=== PATIENT | male | born 1950 | race Caucasian/White ===

== ENCOUNTER 2017-06-27 21:48 | Emergency (ER) | payer MEDICARE ==
[~2017-06-27] VITALS: Ht 185.4 cm; Wt 97.0 kg
[2017-06-27] MEDS ORDERED: diphenhydrAMINE 25mg capsule PO ONE (23:10)
[2017-06-27] MEDS ORDERED: LORazepam 1 MG tablet PO ONE (23:10)
[2017-06-27 23:28] VITALS: BP 138/83
== END 2017-06-27 23:29 | disposition home or self-care (01) ==
LOC: ER 21:48
DX: G47.00 Insomnia, unspecified (principal); E78.00 Pure hypercholesterolemia, unspecified; I10 Essential (primary) hypertension; K21.9 Gastro-esophageal reflux disease without esophagitis; Z98.890 Other specified postprocedural states
CPT/HCPCS: 99283; Q0163

== ENCOUNTER 2017-06-30 07:39 | Emergency (ER) | payer MEDICARE ==
[~2017-06-30] VITALS: Ht 185.4 cm; Wt 97.0 kg
[2017-06-30 08:43] LABS: BASOPHILS # (AUTO) 0.1 X10'3 (0-0.2); BASOPHILS % (AUTO) 0.9 % (0-1); EOSINOPHILS # (AUTO) 0.2 X10'3 (0-0.9); EOSINOPHILS % (AUTO) 2.6 % (0-6); HEMATOCRIT 40.3 % (42.0-52.0); HEMOGLOBIN 13.9 g/dl (14.0-17.9); LYMPHOCYTES # (AUTO) 1.5 X10'3 (1.1-4.8); LYMPHOCYTES % (AUTO) 19.6 % (21-51); MEAN CORPUSCULAR HEMOGLOBIN 30.4 PG (27.0-31.0); MEAN CORPUSCULAR HGB CONC 34.4 % (33.0-36.5); MEAN CORPUSCULAR VOLUME 88.4 FL (78-98); MEAN PLATELET VOLUME 7.4 FL (7.4-10.4); MONOCYTES # (AUTO) 0.5 X10'3 (0-0.9); NEUTROPHILS # (AUTO) 5.5 X10'3 (1.8-7.7); NEUTROPHILS % (AUTO) 69.9 % (42-75); PLATELET COUNT 202 X10'3 (140-440); RED BLOOD COUNT 4.56 X10'6 (4.70-6.10); RED CELL DISTRIBUTION WIDTH 14.2 % (11.5-14.5); WHITE BLOOD COUNT 7.9 X10'3 (4.5-11.0)
[2017-06-30 09:06] LABS: CLARITY,URINE CLEAR (Clear); COLOR,URINE YELLOW (Yellow); GLUCOSE, URINE NEGATIVE (Neg); KETONES,URINE NEGATIVE (Neg); LEUKOCYTE ESTERASE ,URINE NEGATIVE (Neg); NITRITES, URINE NEGATIVE (Neg); OCCULT BLOOD,URINE NEGATIVE (Neg); PH,URINE 6.5 (4.8-8.0); PROTEIN,URINE NEGATIVE (Neg); UROBILINOGEN,URINE 0.2 E.U/dL (0.2-1.0)
[2017-06-30 09:08] LABS: ALANINE AMINOTRANSFERASE 20 U/L (12-78); ALBUMIN/GLOBULIN RATIO 1.2 (1.1-1.5); ALKALINE PHOSPHATASE 104 IU/L (46-116); ANION GAP 9 (8-16); ASPARTATE AMINO TRANSFERASE 15 U/L (10-37); BILIRUBIN,TOTAL 0.8 MG/DL (0.1-1.0); BLOOD UREA NITROGEN 16 MG/DL (7-18); CALCIUM 9.1 MG/DL (8.5-10.1); CHLORIDE 102 MMOL/L (99-107); CREATININE 1.23 MG/DL (0.60-1.10); ETHANOL < 0.010 GM/DL (0.0-0.010); GLUCOSE 154 MG/DL (70-104); POTASSIUM 3.9 MMOL/L (3.5-5.1); SODIUM 139 MMOL/L (135-145); TOTAL CARBON DIOXIDE 28.3 MMOL/L (24-32); TOTAL PROTEIN 7.3 G/DL (6.4-8.2); eGFR 59 ML/MIN
[2017-06-30 09:11] LABS: UA COLLECTION TYPE CLN CATCH MIDSTREAM
[2017-06-30 09:19] LABS: URINE AMPHETAMINE SCREEN NEGATIVE (Neg); URINE BARBITUATE SCREEN NEGATIVE (Neg); URINE BENZODIAZEPINES SCREEN NEGATIVE (Neg); URINE CANNABINOID SCREEN POSITIVE (Neg); URINE COCAINE SCREEN NEGATIVE (Neg); URINE METHADONE SCREEN NEGATIVE (Neg); URINE OPIATE SCREEN NEGATIVE (Neg); URINE PHENCYCLIDINE SCREEN NEGATIVE (Neg)
[2017-06-30] MEDS ORDERED: CLON0.2T PO (09:25)
[2017-06-30] MEDS ORDERED: CLON1TAB4 PO (09:25)
[2017-06-30] MEDS ORDERED: LITH600C PO (09:25)
[2017-06-30] MEDS ORDERED: ZIPR40CA14 PO (09:25)
[2017-06-30] MEDS ORDERED: DONE10TA44 PO (09:25)
[2017-06-30] MEDS ORDERED: ATOR40TA72 PO (09:25)
[2017-06-30] MEDS ORDERED: OLAN20TA3 PO (10:37)
[2017-06-30] MEDS ORDERED: ZOLP5TAB8 PO (10:37)
[2017-06-30] MEDS ORDERED: OXYC-145 PO (10:37)
[2017-06-30] MEDS ORDERED: ZIPR80CA10 PO (10:42)
[2017-06-30] MEDS ORDERED: oxyCODONE/APAP 5-325mg tablet PO PRN (11:25)
[2017-06-30] MEDS ORDERED: LORazepam 1 MG tablet PO ONE (12:20)
[2017-06-30] MEDS ORDERED: ZIPRASIDONE HCL 80 MG PO SCH (13:00)
[2017-06-30] MEDS ORDERED: cloNIDine 0.1 mg tablet PO SCH (13:00)
[2017-06-30] MEDS ORDERED: clonazePAM 1mg tablet PO SCH (13:00)
[2017-06-30 17:19] VITALS: BP 131/78
[2017-06-30] MEDS ORDERED: ziprasidone 20mg capsule PO SCH (20:00)
[2017-06-30] MEDS ORDERED: lithium carbonate 150mg capsule PO SCH (20:00)
[2017-06-30] MEDS ORDERED: olanzapine 10mg tablet PO SCH (21:00)
[2017-06-30] MEDS ORDERED: zolpidem 5mg tablet PO SCH (21:00)
[2017-07-01] MEDS ORDERED: atorvastatin 20mg tablet PO SCH (08:00)
[2017-07-01] MEDS ORDERED: donepezil 5mg tablet PO SCH (08:00)
== END 2017-06-30 17:18 | disposition home or self-care (01) ==
LOC: ER 07:39
DX: F41.9 Anxiety disorder, unspecified (principal); R45.851 Suicidal ideations; E78.00 Pure hypercholesterolemia, unspecified; I10 Essential (primary) hypertension; K21.9 Gastro-esophageal reflux disease without esophagitis; F32.9 Major depressive disorder, single episode, unspecified; Z98.890 Other specified postprocedural states; Z79.899 Other long term (current) drug therapy
CPT/HCPCS: 36415; 80053; 80178; 80305; 80320; 81003; 84443; 85025; 99284

== ENCOUNTER 2017-06-30 21:36 | Emergency (ER) | payer MEDICARE ==
[~2017-06-30] VITALS: Ht 185.4 cm; Wt 82.3 kg
[~2017-06-30 21:36] MED LIST: ATOR40TA72 PO; CLON0.2T PO; CLON1TAB4 PO; DONE10TA44 PO; LITH600C PO; OLAN20TA3 PO; OXYC-145 PO; ZIPR40CA14 PO; ZIPR80CA10 PO; ZOLP5TAB8 PO
[2017-06-30 21:44] VITALS: BP 129/82
[2017-06-30] MEDS ORDERED: LORazepam 1 MG tablet PO ONE (22:40)
== END 2017-06-30 23:02 | disposition home or self-care (01) ==
LOC: ER 21:36
DX: F41.9 Anxiety disorder, unspecified (principal); F32.9 Major depressive disorder, single episode, unspecified; E78.00 Pure hypercholesterolemia, unspecified; I10 Essential (primary) hypertension; K21.9 Gastro-esophageal reflux disease without esophagitis; Z98.890 Other specified postprocedural states; Z79.899 Other long term (current) drug therapy
CPT/HCPCS: 99284

== ENCOUNTER 2017-07-01 14:57 | Emergency (ER) | payer MEDICARE ==
[~2017-07-01] VITALS: Ht 185.4 cm; Wt 93.1 kg
[~2017-07-01 14:57] MED LIST changes: -ZIPR40CA14 PO
[2017-07-01 16:06] LABS: BASOPHILS % (AUTO) 0.1 % (0-1); EOSINOPHILS # (AUTO) 0.2 X10'3 (0-0.9); EOSINOPHILS % (AUTO) 1.9 % (0-6); HEMATOCRIT 39.3 % (42.0-52.0); HEMOGLOBIN 13.5 g/dl (14.0-17.9); LYMPHOCYTES # (AUTO) 0.7 X10'3 (1.1-4.8); LYMPHOCYTES % (AUTO) 7.4 % (21-51); MEAN CORPUSCULAR HEMOGLOBIN 30.6 PG (27.0-31.0); MEAN CORPUSCULAR HGB CONC 34.5 % (33.0-36.5); MEAN CORPUSCULAR VOLUME 88.8 FL (78-98); MEAN PLATELET VOLUME 7.8 FL (7.4-10.4); MONOCYTES # (AUTO) 0.4 X10'3 (0-0.9); MONOCYTES % (AUTO) 3.7 % (2-12); NEUTROPHILS # (AUTO) 8.6 X10'3 (1.8-7.7); NEUTROPHILS % (AUTO) 86.9 % (42-75); PLATELET COUNT 196 X10'3 (140-440); RED BLOOD COUNT 4.43 X10'6 (4.70-6.10); RED CELL DISTRIBUTION WIDTH 13.9 % (11.5-14.5); WHITE BLOOD COUNT 9.9 X10'3 (4.5-11.0)
[2017-07-01 16:15] LABS: CLARITY,URINE CLEAR (Clear); COLOR,URINE YELLOW (Yellow); GLUCOSE, URINE NEGATIVE (Neg); KETONES,URINE NEGATIVE (Neg); LEUKOCYTE ESTERASE ,URINE NEGATIVE (Neg); NITRITES, URINE NEGATIVE (Neg); OCCULT BLOOD,URINE NEGATIVE (Neg); PROTEIN,URINE NEGATIVE (Neg); UROBILINOGEN,URINE 0.2 E.U/dL (0.2-1.0)
[2017-07-01 16:17] LABS: UA COLLECTION TYPE NON-SPECIFIED
[2017-07-01 16:26] LABS: URINE AMPHETAMINE SCREEN NEGATIVE (Neg); URINE BARBITUATE SCREEN NEGATIVE (Neg); URINE BENZODIAZEPINES SCREEN NEGATIVE (Neg); URINE CANNABINOID SCREEN POSITIVE (Neg); URINE COCAINE SCREEN NEGATIVE (Neg); URINE METHADONE SCREEN NEGATIVE (Neg); URINE OPIATE SCREEN NEGATIVE (Neg); URINE PHENCYCLIDINE SCREEN NEGATIVE (Neg)
[2017-07-01 16:28] LABS: ALANINE AMINOTRANSFERASE 16 U/L (12-78); ALBUMIN/GLOBULIN RATIO 1.1 (1.1-1.5); ALKALINE PHOSPHATASE 109 IU/L (46-116); ANION GAP 8 (8-16); ASPARTATE AMINO TRANSFERASE 19 U/L (10-37); BILIRUBIN,TOTAL 0.4 MG/DL (0.1-1.0); BLOOD UREA NITROGEN 17 MG/DL (7-18); CALCIUM 8.8 MG/DL (8.5-10.1); CHLORIDE 103 MMOL/L (99-107); CREATININE 1.21 MG/DL (0.60-1.10); GLUCOSE 144 MG/DL (70-104); POTASSIUM 3.9 MMOL/L (3.5-5.1); SODIUM 139 MMOL/L (135-145); TOTAL PROTEIN 7.5 G/DL (6.4-8.2); eGFR 60 ML/MIN
[2017-07-01 16:30] LABS: ACETAMINOPHEN < 2.0 UG/ML (10-30)
[2017-07-01 16:31] LABS: ETHANOL < 0.010 GM/DL (0.0-0.010)
[2017-07-01] MEDS ORDERED: oxyCODONE/APAP 5-325mg tablet PO PRN (17:35)
[2017-07-01] MEDS: ziprasidone 20mg capsule PO SCH (20:35)
[2017-07-01] MEDS: cloNIDine 0.1 mg tablet PO SCH (20:35)
[2017-07-01] MEDS: lithium carbonate 150mg capsule PO SCH (20:36)
[2017-07-01] MEDS ORDERED: olanzapine 10mg tablet PO SCH (21:00)
[2017-07-01] MEDS ORDERED: zolpidem 5mg tablet PO SCH (21:00)
[2017-07-01] MEDS ORDERED: LORazepam 1 MG tablet PO ONE (22:40)
[2017-07-02] MEDS ORDERED: haloperidol 5mg tablet PO ONE
[2017-07-02] MEDS ORDERED: diphenhydrAMINE 25mg capsule PO ONE (01:50)
[2017-07-02] MEDS ORDERED: atorvastatin 20mg tablet PO SCH (08:00)
[2017-07-02] MEDS ORDERED: donepezil 5mg tablet PO SCH (08:00)
[2017-07-02] MEDS: ziprasidone 20mg capsule PO SCH (08:31)
[2017-07-02] MEDS: cloNIDine 0.1 mg tablet PO SCH (08:32)
[2017-07-02] MEDS: lithium carbonate 150mg capsule PO SCH (08:35)
[2017-07-02 09:27] VITALS: BP 125/87
[2017-07-02] MEDS ORDERED: CLON-527 PO (11:26)
== END 2017-07-02 09:30 | disposition home or self-care (01) ==
LOC: ER 14:57
DX: R41.82 Altered mental status, unspecified (principal); F29 Unspecified psychosis not due to a substance or known physiological condition; E78.00 Pure hypercholesterolemia, unspecified; I10 Essential (primary) hypertension; K21.9 Gastro-esophageal reflux disease without esophagitis; F41.9 Anxiety disorder, unspecified; F32.9 Major depressive disorder, single episode, unspecified; Z79.899 Other long term (current) drug therapy
CPT/HCPCS: 36415; 80053; 80178; 80305; 80320; 80329; 81003; 84443; 85025; 99284; J3490; Q0163

== ENCOUNTER 2017-07-01 22:50 | Inpatient (IN) | payer MEDICARE ==
[~2017-07-01] VITALS: Ht 185.4 cm; Wt 90.4 kg
[2017-07-02] MEDS ORDERED: magnesium hydroxide 30ml (MOM) UD suspension PO PRN (11:00)
[2017-07-02] MEDS ORDERED: mag hydrox/Alum hydrox/simeth 30ml oral suspension PO PRN (11:00)
[2017-07-02] MEDS ORDERED: acetaminophen 325mg tablet PO PRN ×2 (11:00)
[2017-07-02] MEDS ORDERED: CLON-527 PO (11:26)
[2017-07-02 11:52] VITALS: BP 131/95
[2017-07-02] MEDS: donepezil 5mg tablet PO SCH (15:03)
[2017-07-02] MEDS ORDERED: clonazePAM 1mg tablet PO ONE (15:10)
[2017-07-02] MEDS: oxyCODONE/APAP 5-325mg tablet PO PRN ×2 (15:49→23:39)
[2017-07-02 19:55] VITALS: BP 141/87
[2017-07-02] MEDS ORDERED: lithium carbonate 300mg SR tablet (LithoBID) PO SCH (20:00)
[2017-07-02] MEDS: lithium carbonate 300mg SR tablet (LithoBID) PO SCH (20:37)
[2017-07-02] MEDS: cloNIDine 0.1 mg tablet PO SCH (20:37)
[2017-07-02] MEDS: clonazePAM 1mg tablet PO SCH (20:38)
[2017-07-02] MEDS: olanzapine 10mg tablet PO SCH (20:38)
[2017-07-02] MEDS ORDERED: traZODone 50mg tablet PO PRN ×2 (20:50→23:15)
[2017-07-02] MEDS ORDERED: zolpidem 5mg tablet PO SCH (21:00)
[2017-07-03] MEDS ORDERED: temazepam 15mg capsule PO ONE (01:55)
[2017-07-03 07:55] LABS: CHOL/HDL RATIO 2.3 (0.00-4.99); CHOLESTEROL 82 MG/DL (0-200); HDL CHOLESTEROL 36 MG/DL (35-60); LDL CHOLESTEROL 32 MG/DL (50-100); TRIGLYCERIDES 140 MG/DL (20-135)
[2017-07-03] MEDS: oxyCODONE/APAP 5-325mg tablet PO PRN ×3 (08:00→20:57)
[2017-07-03 08:17] LABS: HEMOGLOBIN A1C 5.8 % (4.5-6.2)
[2017-07-03 08:30] VITALS: BP 118/81
[2017-07-03] MEDS: cloNIDine 0.1 mg tablet PO SCH ×3 (08:54→20:54)
[2017-07-03] MEDS: lithium carbonate 300mg SR tablet (LithoBID) PO SCH ×2 (08:55→20:54)
[2017-07-03] MEDS: donepezil 5mg tablet PO SCH (08:55)
[2017-07-03] MEDS: clonazePAM 1mg tablet PO SCH ×3 (08:55→20:55)
[2017-07-03 12:38] VITALS: BP 102/67
[2017-07-03 19:36] VITALS: BP 126/75
[2017-07-03] MEDS: olanzapine 10mg tablet PO SCH (20:55)
[2017-07-03] MEDS ORDERED: temazepam 15mg capsule PO PRN (21:20)
[2017-07-03] MEDS: traZODone 150mg tablet PO PRN (23:56)
[2017-07-04] MEDS: oxyCODONE/APAP 5-325mg tablet PO PRN ×3 (04:55→20:31)
[2017-07-04 07:33] VITALS: BP 159/81
[2017-07-04] MEDS: donepezil 5mg tablet PO SCH (08:33)
[2017-07-04] MEDS: cloNIDine 0.1 mg tablet PO SCH ×3 (08:33→20:30)
[2017-07-04] MEDS: clonazePAM 1mg tablet PO SCH ×3 (08:33→20:30)
[2017-07-04] MEDS: lithium carbonate 300mg SR tablet (LithoBID) PO SCH ×2 (08:34→20:30)
[2017-07-04] MEDS: olanzapine 10mg tablet PO SCH (20:30)
[2017-07-04] MEDS: traZODone 150mg tablet PO PRN ×2 (20:31→22:29)
[2017-07-04] MEDS ORDERED: traZODone 150mg tablet PO SCH (21:00)
[2017-07-05] MEDS: oxyCODONE/APAP 5-325mg tablet PO PRN (02:46)
[2017-07-05] MEDS ORDERED: LIT300C PO (06:31)
[2017-07-05] MEDS ORDERED: TRAZ-143 PO (06:31)
[2017-07-05] MEDS ORDERED: TRAZ150T78 PO (07:56)
[2017-07-05 07:57] VITALS: BP 127/90
[2017-07-05] MEDS: donepezil 5mg tablet PO SCH (08:10)
[2017-07-05] MEDS: cloNIDine 0.1 mg tablet PO SCH (08:10)
[2017-07-05] MEDS: lithium carbonate 300mg SR tablet (LithoBID) PO SCH (08:10)
[2017-07-05] MEDS: clonazePAM 1mg tablet PO SCH (08:10)
== END 2017-07-05 09:00 | disposition home or self-care (01) | DRG 887 ==
LOC: ADULT MH 22:50
PROVIDERS: ADMIT Psychiatry & Neurology Psychiatry; ATTEND Psychiatry & Neurology Psychiatry
DX: G47.00 Insomnia, unspecified (principal); F03.90 Unspecified dementia, unspecified severity, without behavioral disturbance, psychotic disturbance, mood disturbance, and anxiety; R45.851 Suicidal ideations; F41.9 Anxiety disorder, unspecified; F41.0 Panic disorder [episodic paroxysmal anxiety]; F90.9 Attention-deficit hyperactivity disorder, unspecified type; F39 Unspecified mood [affective] disorder; F12.90 Cannabis use, unspecified, uncomplicated; Z87.891 Personal history of nicotine dependence; Z80.0 Family history of malignant neoplasm of digestive organs
CPT/HCPCS: 36415; 80061; 80178; 83036; 87070; 97161; J3490

== ENCOUNTER 2017-08-07 15:02 | Inpatient (IN) | payer MEDICARE ==
[~2017-08-07] VITALS: Ht 182.9 cm; Wt 90.2 kg
[~2017-08-07 15:02] MED LIST changes: -CLON1TAB4 PO; -DOCU100C41 PO; -DONE10TA6 PO; -HALO2TAB PO; -OLAN5TAB5 PO
[2017-08-07] MEDS ORDERED: HALO2TAB PO ×2 (16:17→16:57)
[2017-08-07] MEDS ORDERED: DONE10TA6 PO (16:57)
[2017-08-07] MEDS ORDERED: CLON0.2T PO (16:57)
[2017-08-07] MEDS ORDERED: MIRT30TA8 PO (16:57)
[2017-08-07] MEDS ORDERED: ZOLP10TA PO (16:57)
[2017-08-07] MEDS ORDERED: CLON-371 PO (16:57)
[2017-08-07] MEDS ORDERED: DOCU100C41 PO (16:57)
[2017-08-07] MEDS ORDERED: OLAN5TAB5 PO (16:57)
[2017-08-07] MEDS ORDERED: TRAZ150T78 PO (16:57)
[2017-08-07] MEDS ORDERED: docusate sod 100mg capsule PO PRN (17:05)
[2017-08-07] MEDS ORDERED: mag hydrox/Alum hydrox/simeth 30ml oral suspension PO PRN (17:15)
[2017-08-07] MEDS ORDERED: magnesium hydroxide 30ml (MOM) UD suspension PO PRN (17:15)
[2017-08-07] MEDS ORDERED: acetaminophen 325mg tablet PO PRN (17:15)
[2017-08-07 20:30] VITALS: BP 145/93
[2017-08-07] MEDS: zolpidem 5mg tablet PO PRN (20:34)
[2017-08-07] MEDS: cloNIDine 0.1 mg tablet PO SCH (20:35)
[2017-08-07] MEDS: traZODone 150mg tablet PO SCH (20:35)
[2017-08-07] MEDS: clonazePAM 1mg tablet PO SCH (20:36)
[2017-08-07] MEDS: haloperidol 1mg tablet PO SCH (20:36)
[2017-08-07] MEDS ORDERED: mirtazapine 15mg tablet PO SCH (21:00)
[2017-08-08] MEDS: donepezil 5mg tablet PO SCH (07:42)
[2017-08-08] MEDS: clonazePAM 1mg tablet PO SCH ×2 (07:43→20:35)
[2017-08-08] MEDS: cloNIDine 0.1 mg tablet PO SCH ×3 (07:43→20:35)
[2017-08-08] MEDS: haloperidol 1mg tablet PO SCH ×3 (07:43→20:37)
[2017-08-08 08:00] VITALS: BP 155/100
[2017-08-08] MEDS ORDERED: OLANZapine 5mg rapidly disint. tablet PO SCH (08:00)
[2017-08-08 10:28] LABS: CHOL/HDL RATIO 3.1 (0.00-4.99); CHOLESTEROL 102 MG/DL (0-200); HDL CHOLESTEROL 33 MG/DL (35-60); LDL CHOLESTEROL 49 MG/DL (50-100); TRIGLYCERIDES 218 MG/DL (20-135)
[2017-08-08] MEDS: acetaminophen 325mg tablet PO PRN (19:45)
[2017-08-08 20:00] VITALS: BP 123/83
[2017-08-08] MEDS: traZODone 150mg tablet PO SCH (20:35)
[2017-08-08] MEDS: OLANZapine 5mg rapidly disint. tablet PO SCH (20:36)
[2017-08-08] MEDS: mirtazapine 15mg tablet PO SCH (20:37)
[2017-08-08] MEDS: gabapentin 300mg capsule PO SCH (20:37)
[2017-08-08] MEDS: zolpidem 5mg tablet PO PRN (20:39)
[2017-08-09 08:00] VITALS: BP 133/96
[2017-08-09] MEDS: haloperidol 1mg tablet PO SCH ×3 (08:31→21:54)
[2017-08-09] MEDS: atorvastatin 10mg tablet PO SCH (08:31)
[2017-08-09] MEDS: cloNIDine 0.1 mg tablet PO SCH ×3 (08:31→21:54)
[2017-08-09] MEDS: clonazePAM 1mg tablet PO SCH (08:32)
[2017-08-09] MEDS: gabapentin 300mg capsule PO SCH ×3 (08:32→21:54)
[2017-08-09] MEDS: donepezil 5mg tablet PO SCH (08:32)
[2017-08-09 20:00] VITALS: BP 116/83
[2017-08-09] MEDS: zolpidem 5mg tablet PO PRN (21:01)
[2017-08-09] MEDS: mirtazapine 15mg tablet PO SCH (21:54)
[2017-08-09] MEDS: OLANZapine 5mg rapidly disint. tablet PO SCH (21:54)
[2017-08-09] MEDS: traZODone 150mg tablet PO SCH (21:54)
[2017-08-10 08:00] VITALS: BP 146/88
[2017-08-10] MEDS: haloperidol 1mg tablet PO SCH ×3 (08:07→20:40)
[2017-08-10] MEDS: donepezil 5mg tablet PO SCH (08:08)
[2017-08-10] MEDS: atorvastatin 10mg tablet PO SCH (08:08)
[2017-08-10] MEDS: cloNIDine 0.1 mg tablet PO SCH ×3 (08:08→20:41)
[2017-08-10] MEDS: gabapentin 300mg capsule PO SCH ×3 (08:08→20:40)
[2017-08-10 20:00] VITALS: BP 122/81
[2017-08-10] MEDS: OLANZapine 5mg rapidly disint. tablet PO SCH (20:42)
[2017-08-10] MEDS: traZODone 150mg tablet PO SCH (20:42)
[2017-08-10] MEDS: mirtazapine 15mg tablet PO SCH (20:42)
[2017-08-10] MEDS: zolpidem 5mg tablet PO PRN (22:34)
[2017-08-11 08:00] VITALS: BP 132/96
[2017-08-11] MEDS: gabapentin 300mg capsule PO SCH ×3 (08:14→20:50)
[2017-08-11] MEDS: donepezil 5mg tablet PO SCH (08:15)
[2017-08-11] MEDS: cloNIDine 0.1 mg tablet PO SCH ×3 (08:15→20:50)
[2017-08-11] MEDS: haloperidol 1mg tablet PO SCH ×3 (08:16→20:50)
[2017-08-11] MEDS: atorvastatin 10mg tablet PO SCH (08:16)
[2017-08-11] MEDS ORDERED: traZODone 150mg tablet PO SCH (18:00)
[2017-08-11] MEDS ORDERED: lurasidone 20mg tablet PO SCH (18:00)
[2017-08-11] MEDS: clonazePAM 1mg tablet PO PRN (19:06)
[2017-08-11 20:00] VITALS: BP 126/69
[2017-08-11] MEDS: zolpidem 5mg tablet PO PRN (20:49)
[2017-08-11] MEDS: mirtazapine 15mg tablet PO SCH (20:49)
[2017-08-12 08:00] VITALS: BP 129/91
[2017-08-12] MEDS: gabapentin 300mg capsule PO SCH ×3 (08:02→20:18)
[2017-08-12] MEDS: haloperidol 1mg tablet PO SCH ×3 (08:02→20:17)
[2017-08-12] MEDS: donepezil 5mg tablet PO SCH (08:02)
[2017-08-12] MEDS: atorvastatin 10mg tablet PO SCH (08:02)
[2017-08-12 08:03] VITALS: BP 129/91
[2017-08-12] MEDS: cloNIDine 0.1 mg tablet PO SCH ×3 (08:03→20:18)
[2017-08-12] MEDS ORDERED: traZODone 50mg tablet PO SCH (15:56)
[2017-08-12 20:00] VITALS: BP 122/83
[2017-08-12] MEDS: zolpidem 5mg tablet PO PRN (20:18)
[2017-08-12] MEDS: mirtazapine 15mg tablet PO SCH (20:18)
[2017-08-13] MEDS: acetaminophen 325mg tablet PO PRN ×2 (05:08→20:21)
[2017-08-13 08:31] VITALS: BP 97/61
[2017-08-13] MEDS: gabapentin 300mg capsule PO SCH ×2 (08:37→12:47)
[2017-08-13] MEDS: donepezil 5mg tablet PO SCH (08:37)
[2017-08-13] MEDS: haloperidol 1mg tablet PO SCH (08:38)
[2017-08-13] MEDS: cloNIDine 0.1 mg tablet PO SCH ×3 (08:38→20:17)
[2017-08-13] MEDS: atorvastatin 10mg tablet PO SCH (08:38)
[2017-08-13] MEDS: traZODone 150mg tablet PO SCH (19:04)
[2017-08-13 19:37] VITALS: BP 135/92
[2017-08-13 20:10] VITALS: BP 110/88
[2017-08-13] MEDS: gabapentin 400mg capsule PO SCH (20:17)
[2017-08-13] MEDS: mirtazapine 15mg tablet PO SCH (20:19)
[2017-08-13] MEDS: zolpidem 5mg tablet PO PRN (20:19)
[2017-08-14] MEDS: clonazePAM 1mg tablet PO PRN (04:53)
[2017-08-14] MEDS ORDERED: gabapentin 400mg capsule PO SCH (07:30)
[2017-08-14] MEDS: gabapentin 300mg capsule PO SCH ×2 (07:30→13:17)
[2017-08-14] MEDS ORDERED: gabapentin 100mg capsule PO SCH (07:30)
[2017-08-14 08:26] VITALS: BP 116/86
[2017-08-14] MEDS: cloNIDine 0.1 mg tablet PO SCH ×3 (08:26→20:28)
[2017-08-14] MEDS: atorvastatin 10mg tablet PO SCH (08:26)
[2017-08-14] MEDS: donepezil 5mg tablet PO SCH (08:27)
[2017-08-14 13:20] VITALS: BP 102/74
[2017-08-14] MEDS: traZODone 150mg tablet PO SCH (17:45)
[2017-08-14 20:00] VITALS: BP 125/93
[2017-08-14] MEDS: gabapentin 400mg capsule PO SCH (20:28)
[2017-08-14] MEDS: mirtazapine 15mg tablet PO SCH (20:28)
[2017-08-14] MEDS: zolpidem 5mg tablet PO PRN (20:28)
[2017-08-15] MEDS: clonazePAM 1mg tablet PO PRN ×2 (00:34→21:03)
[2017-08-15] MEDS: gabapentin 300mg capsule PO SCH ×2 (07:34→13:01)
[2017-08-15] MEDS: cloNIDine 0.1 mg tablet PO SCH ×3 (07:50→21:03)
[2017-08-15] MEDS: donepezil 5mg tablet PO SCH (07:50)
[2017-08-15] MEDS: atorvastatin 10mg tablet PO SCH (07:50)
[2017-08-15 08:21] VITALS: BP 126/84
[2017-08-15] MEDS: traZODone 150mg tablet PO SCH (17:47)
[2017-08-15 20:00] VITALS: BP 126/86
[2017-08-15] MEDS: zolpidem 5mg tablet PO PRN (21:02)
[2017-08-15] MEDS: gabapentin 400mg capsule PO SCH (21:03)
[2017-08-15] MEDS: mirtazapine 15mg tablet PO SCH (21:03)
[2017-08-16 08:00] VITALS: BP 112/73
[2017-08-16] MEDS: cloNIDine 0.1 mg tablet PO SCH ×3 (08:33→21:05)
[2017-08-16] MEDS: atorvastatin 10mg tablet PO SCH (08:33)
[2017-08-16] MEDS: donepezil 5mg tablet PO SCH (08:33)
[2017-08-16] MEDS: gabapentin 300mg capsule PO SCH ×2 (08:34→12:26)
[2017-08-16 19:13] VITALS: BP 114/73
[2017-08-16] MEDS ORDERED: temazepam 15mg capsule PO SCH (21:00)
[2017-08-16] MEDS ORDERED: aripiprazole 5mg tablet PO SCH (21:00)
[2017-08-16] MEDS: gabapentin 400mg capsule PO SCH (21:05)
[2017-08-16] MEDS: mirtazapine 15mg tablet PO SCH (21:06)
[2017-08-17] MEDS: clonazePAM 1mg tablet PO PRN ×2 (03:37→15:02)
[2017-08-17 08:00] VITALS: BP 115/82
[2017-08-17] MEDS: cloNIDine 0.1 mg tablet PO SCH ×3 (08:00→21:53)
[2017-08-17] MEDS: gabapentin 300mg capsule PO SCH ×2 (08:01→13:04)
[2017-08-17] MEDS: atorvastatin 10mg tablet PO SCH (08:01)
[2017-08-17] MEDS: donepezil 5mg tablet PO SCH (08:01)
[2017-08-17] MEDS: hydrocortisone 1% cream 28gm TP SCH ×2 (09:00→19:23)
[2017-08-17] MEDS: temazepam 15mg capsule PO SCH (21:00)
[2017-08-17] MEDS: gabapentin 400mg capsule PO SCH (21:53)
[2017-08-17] MEDS: mirtazapine 15mg tablet PO SCH (21:54)
[2017-08-17] MEDS: olanzapine 10mg tablet PO SCH (21:57)
[2017-08-18 08:00] VITALS: BP 116/78
[2017-08-18] MEDS: hydrocortisone 1% cream 28gm TP SCH ×2 (08:00→20:16)
[2017-08-18] MEDS: donepezil 5mg tablet PO SCH (08:04)
[2017-08-18] MEDS: atorvastatin 10mg tablet PO SCH (08:04)
[2017-08-18] MEDS: cloNIDine 0.1 mg tablet PO SCH ×3 (08:04→20:17)
[2017-08-18] MEDS: gabapentin 300mg capsule PO SCH ×2 (08:04→13:01)
[2017-08-18] MEDS: clonazePAM 1mg tablet PO PRN (17:43)
[2017-08-18 19:00] VITALS: BP 117/72
[2017-08-18] MEDS: mirtazapine 15mg tablet PO SCH (20:16)
[2017-08-18] MEDS: gabapentin 400mg capsule PO SCH (20:17)
[2017-08-18] MEDS: olanzapine 10mg tablet PO SCH (20:18)
[2017-08-18] MEDS: temazepam 15mg capsule PO SCH (20:26)
[2017-08-19] MEDS: clonazePAM 1mg tablet PO PRN (06:57)
[2017-08-19 08:00] VITALS: BP 119/89
[2017-08-19] MEDS: cloNIDine 0.1 mg tablet PO SCH ×3 (08:19→20:24)
[2017-08-19] MEDS: atorvastatin 10mg tablet PO SCH (08:19)
[2017-08-19] MEDS: gabapentin 300mg capsule PO SCH ×2 (08:19→13:25)
[2017-08-19] MEDS: donepezil 5mg tablet PO SCH (08:19)
[2017-08-19] MEDS: hydrocortisone 1% cream 28gm TP SCH ×2 (08:21→20:27)
[2017-08-19 20:00] VITALS: BP 130/82
[2017-08-19] MEDS: temazepam 15mg capsule PO SCH (20:24)
[2017-08-19] MEDS: gabapentin 400mg capsule PO SCH (20:24)
[2017-08-19] MEDS: mirtazapine 15mg tablet PO SCH (20:24)
[2017-08-19] MEDS: olanzapine 10mg tablet PO SCH (20:25)
[2017-08-20] MEDS: clonazePAM 1mg tablet PO PRN (03:34)
[2017-08-20] MEDS ORDERED: clonazePAM 0.5mg tablet PO ONE (07:20)
[2017-08-20] MEDS: gabapentin 300mg capsule PO SCH ×2 (07:50→12:59)
[2017-08-20] MEDS: atorvastatin 10mg tablet PO SCH (07:50)
[2017-08-20] MEDS: donepezil 5mg tablet PO SCH (07:51)
[2017-08-20] MEDS: cloNIDine 0.1 mg tablet PO SCH ×3 (07:51→20:13)
[2017-08-20] MEDS: hydrocortisone 1% cream 28gm TP SCH ×2 (07:54→20:15)
[2017-08-20 08:00] VITALS: BP 115/81
[2017-08-20 19:44] VITALS: BP 130/88
[2017-08-20] MEDS: gabapentin 400mg capsule PO SCH (20:11)
[2017-08-20] MEDS: mirtazapine 15mg tablet PO SCH (20:12)
[2017-08-20] MEDS: olanzapine 10mg tablet PO SCH (20:12)
[2017-08-20] MEDS: temazepam 15mg capsule PO SCH (20:13)
[2017-08-21] MEDS: clonazePAM 1mg tablet PO PRN ×2 (00:03→12:13)
[2017-08-21] MEDS: gabapentin 300mg capsule PO SCH ×3 (07:41→20:16)
[2017-08-21 08:00] VITALS: BP 144/93
[2017-08-21] MEDS: donepezil 5mg tablet PO SCH (08:12)
[2017-08-21] MEDS: atorvastatin 10mg tablet PO SCH (08:12)
[2017-08-21] MEDS: cloNIDine 0.1 mg tablet PO SCH ×3 (08:12→20:14)
[2017-08-21] MEDS: hydrocortisone 1% cream 28gm TP SCH ×2 (08:13→20:14)
[2017-08-21 09:42] LABS: BASOPHILS % (AUTO) 0.6 % (0-1); EOSINOPHILS # (AUTO) 0.1 X10'3 (0-0.9); EOSINOPHILS % (AUTO) 1.2 % (0-6); HEMATOCRIT 43.5 % (42.0-52.0); LYMPHOCYTES # (AUTO) 1.6 X10'3 (1.1-4.8); LYMPHOCYTES % (AUTO) 37.1 % (21-51); MEAN CORPUSCULAR HEMOGLOBIN 30.3 PG (27.0-31.0); MEAN CORPUSCULAR HGB CONC 34.4 % (33.0-36.5); MONOCYTES # (AUTO) 0.3 X10'3 (0-0.9); NEUTROPHILS # (AUTO) 2.4 X10'3 (1.8-7.7); NEUTROPHILS % (AUTO) 54.1 % (42-75); PLATELET COUNT 150 X10'3 (140-440); RED BLOOD COUNT 4.95 X10'6 (4.70-6.10); RED CELL DISTRIBUTION WIDTH 13.4 % (11.5-14.5); WHITE BLOOD COUNT 4.4 X10'3 (4.5-11.0)
[2017-08-21 10:10] LABS: ALANINE AMINOTRANSFERASE 16 U/L (12-78); ALBUMIN 3.9 G/DL (3.4-5.0); ALBUMIN/GLOBULIN RATIO 1.1 (1.1-1.5); ALKALINE PHOSPHATASE 115 IU/L (46-116); ANION GAP 10 (8-16); ASPARTATE AMINO TRANSFERASE 18 U/L (10-37); BILIRUBIN,TOTAL 0.4 MG/DL (0.1-1.0); BLOOD UREA NITROGEN 14 MG/DL (7-18); BUN/CREATININE RATIO 12.2 (5.4-32.0); CALCIUM 9.2 MG/DL (8.5-10.1); CHLORIDE 102 MMOL/L (99-107); CREATININE 1.15 MG/DL (0.60-1.10); GLUCOSE 153 MG/DL (70-104); POTASSIUM 3.7 MMOL/L (3.5-5.1); SODIUM 141 MMOL/L (135-145); TOTAL CARBON DIOXIDE 29.5 MMOL/L (24-32); TOTAL PROTEIN 7.3 G/DL (6.4-8.2); eGFR 64 ML/MIN
[2017-08-21] MEDS ORDERED: clonazePAM 1mg tablet PO PRN (11:05)
[2017-08-21] MEDS: mirtazapine 15mg tablet PO SCH (20:17)
[2017-08-21] MEDS: temazepam 15mg capsule PO SCH (20:18)
[2017-08-21 20:57] VITALS: BP 111/82
[2017-08-22] MEDS: clonazePAM 1mg tablet PO PRN (05:05)
[2017-08-22] MEDS: gabapentin 300mg capsule PO SCH ×3 (07:20→20:40)
[2017-08-22] MEDS: atorvastatin 10mg tablet PO SCH (07:56)
[2017-08-22] MEDS: cloNIDine 0.1 mg tablet PO SCH ×3 (07:56→20:38)
[2017-08-22] MEDS: donepezil 5mg tablet PO SCH (07:56)
[2017-08-22 08:00] VITALS: BP 126/91
[2017-08-22] MEDS: hydrocortisone 1% cream 28gm TP SCH ×2 (08:09→20:00)
[2017-08-22] MEDS ORDERED: venlafaxine XR 37.5mg cap (Q24H) PO ONE (10:00)
[2017-08-22 19:00] VITALS: BP 125/77
[2017-08-22] MEDS: mirtazapine 15mg tablet PO SCH (20:39)
[2017-08-22] MEDS: temazepam 15mg capsule PO SCH (20:39)
[2017-08-22] MEDS: gemfibrozil 600mg tablet PO SCH (20:39)
[2017-08-22] MEDS ORDERED: traMADol 50MG tablet PO ONE (21:30)
[2017-08-23] MEDS: clonazePAM 1mg tablet PO PRN (05:34)
[2017-08-23 08:00] VITALS: BP 165/104
[2017-08-23] MEDS ORDERED: venlafaxine XR 75mg capsule (Q24H) PO SCH (08:00)
[2017-08-23] MEDS: gabapentin 300mg capsule PO SCH (08:10)
[2017-08-23] MEDS: donepezil 5mg tablet PO SCH (08:11)
[2017-08-23] MEDS: hydrocortisone 1% cream 28gm TP SCH (08:11)
[2017-08-23] MEDS: cloNIDine 0.1 mg tablet PO SCH (08:11)
[2017-08-23] MEDS: gemfibrozil 600mg tablet PO SCH (08:11)
[2017-08-23] MEDS ORDERED: VENL75CA61 PO (09:47)
[2017-08-23] MEDS ORDERED: TEMA30CA PO (09:47)
[2017-08-23] MEDS ORDERED: MIRT30TA8 PO (09:47)
[2017-08-23] MEDS ORDERED: GABA300C PO (09:47)
[2017-08-23] MEDS ORDERED: GEMF600T PO (09:47)
== END 2017-08-23 11:15 | disposition home or self-care (01) | DRG 881 ==
LOC: ADULT MH 15:02
PROVIDERS: ADMIT Psychiatry & Neurology Psychiatry; ATTEND Psychiatry & Neurology Psychiatry
DX: F32.9 Major depressive disorder, single episode, unspecified (principal); F03.90 Unspecified dementia, unspecified severity, without behavioral disturbance, psychotic disturbance, mood disturbance, and anxiety; R45.851 Suicidal ideations; E78.1 Pure hyperglyceridemia; E78.5 Hyperlipidemia, unspecified; F41.1 Generalized anxiety disorder; M20.40 Other hammer toe(s) (acquired), unspecified foot; H00.014 Hordeolum externum left upper eyelid; F51.03 Paradoxical insomnia; F12.90 Cannabis use, unspecified, uncomplicated; R25.1 Tremor, unspecified; E78.00 Pure hypercholesterolemia, unspecified; F41.0 Panic disorder [episodic paroxysmal anxiety]; I10 Essential (primary) hypertension; R32 Unspecified urinary incontinence; Z79.899 Other long term (current) drug therapy
CPT/HCPCS: 36415; 70551; 80053; 80061; 82607; 82746; 85025; 87070; 99285; J3490

== ENCOUNTER → 2017-08-07 | Emergency (ER) | payer MEDICARE ==
[~2017-08-07] VITALS: Ht 185.4 cm; Wt 93.1 kg
[~2017-08-07] MED LIST changes: -ATOR40TA72 PO; +CLON-527 PO; +COL100C PO; +DOCU100C41 PO; +DONE10TA6 PO; +HALO2TAB PO; -LITH600C PO; +MIRT30TA8 PO; -OLAN20TA3 PO; +OLAN5TAB29 PO; +OLAN5TAB5 PO; -OXYC-145 PO; +TRAZ150T78 PO; -ZIPR80CA10 PO; +ZOLP10TA PO; -ZOLP5TAB8 PO
[2017-08-07 09:00] VITALS: BP 142/90
[2017-08-07 09:30] LABS: BASOPHILS % (AUTO) 0.5 % (0-1); EOSINOPHILS # (AUTO) 0.1 X10'3 (0-0.9); EOSINOPHILS % (AUTO) 1.4 % (0-6); HEMATOCRIT 42.3 % (42.0-52.0); HEMOGLOBIN 14.4 g/dl (14.0-17.9); LYMPHOCYTES # (AUTO) 2.3 X10'3 (1.1-4.8); LYMPHOCYTES % (AUTO) 36.6 % (21-51); MEAN CORPUSCULAR HEMOGLOBIN 30.1 PG (27.0-31.0); MEAN CORPUSCULAR VOLUME 88.6 FL (78-98); MEAN PLATELET VOLUME 7.8 FL (7.4-10.4); MONOCYTES # (AUTO) 0.4 X10'3 (0-0.9); MONOCYTES % (AUTO) 6.8 % (2-12); NEUTROPHILS # (AUTO) 3.4 X10'3 (1.8-7.7); NEUTROPHILS % (AUTO) 54.7 % (42-75); PLATELET COUNT 193 X10'3 (140-440); RED BLOOD COUNT 4.77 X10'6 (4.70-6.10); RED CELL DISTRIBUTION WIDTH 13.3 % (11.5-14.5); WHITE BLOOD COUNT 6.2 X10'3 (4.5-11.0)
[2017-08-07 09:44] LABS: ALANINE AMINOTRANSFERASE 18 U/L (12-78); ALBUMIN/GLOBULIN RATIO 1.3 (1.1-1.5); ALKALINE PHOSPHATASE 110 IU/L (46-116); ANION GAP 8 (8-16); ASPARTATE AMINO TRANSFERASE 17 U/L (10-37); BILIRUBIN,TOTAL 0.3 MG/DL (0.1-1.0); BLOOD UREA NITROGEN 10 MG/DL (7-18); BUN/CREATININE RATIO 8.3 (5.4-32.0); CALCIUM 8.7 MG/DL (8.5-10.1); CHLORIDE 105 MMOL/L (99-107); GLUCOSE 99 MG/DL (70-104); POTASSIUM 3.4 MMOL/L (3.5-5.1); SODIUM 143 MMOL/L (135-145); TOTAL CARBON DIOXIDE 29.8 MMOL/L (24-32); TOTAL PROTEIN 7.2 G/DL (6.4-8.2); eGFR 61 ML/MIN
[2017-08-07 09:53] LABS: ETHANOL < 0.010 GM/DL (0.0-0.010)
[2017-08-07 11:15] LABS: CLARITY,URINE CLEAR (Clear); COLOR,URINE YELLOW (Yellow); GLUCOSE, URINE NEGATIVE (Neg); KETONES,URINE NEGATIVE (Neg); LEUKOCYTE ESTERASE ,URINE NEGATIVE (Neg); NITRITES, URINE NEGATIVE (Neg); OCCULT BLOOD,URINE NEGATIVE (Neg); PH,URINE 5.5 (4.8-8.0); PROTEIN,URINE NEGATIVE (Neg); UROBILINOGEN,URINE 0.2 E.U/dL (0.2-1.0)
[2017-08-07 11:23] LABS: URINE AMPHETAMINE SCREEN NEGATIVE (Neg); URINE BARBITUATE SCREEN NEGATIVE (Neg); URINE BENZODIAZEPINES SCREEN NEGATIVE (Neg); URINE CANNABINOID SCREEN POSITIVE (Neg); URINE COCAINE SCREEN NEGATIVE (Neg); URINE METHADONE SCREEN NEGATIVE (Neg); URINE OPIATE SCREEN NEGATIVE (Neg); URINE PHENCYCLIDINE SCREEN NEGATIVE (Neg)
[2017-08-07 11:25] LABS: UA COLLECTION TYPE CLN CATCH MIDSTREAM
== END | disposition home or self-care (01) ==
LOC: ER 08:48
DX: R45.851 Suicidal ideations (principal); E78.00 Pure hypercholesterolemia, unspecified; I10 Essential (primary) hypertension; K21.9 Gastro-esophageal reflux disease without esophagitis; F32.9 Major depressive disorder, single episode, unspecified; F41.9 Anxiety disorder, unspecified; Z98.890 Other specified postprocedural states; Z79.899 Other long term (current) drug therapy
CPT/HCPCS: 36415; 80053; 80305; 80320; 81003; 84443; 85025; 99284

== ENCOUNTER 2018-11-29 08:16 | Outpatient (CLI) | payer MEDICARE ==
[~2018-11-29 08:16] MED LIST changes: +ATOR40TA7 PO; +CLON-371 PO; -CLON-527 PO; -COL100C PO; +DIVA125T2 PO; +DOCU100C41 PO; -DONE10TA44 PO; +GABA300C PO; +GABA600T PO; +GEMF600T PO; +MIRT15TA PO; -MIRT30TA8 PO; -OLAN5TAB29 PO; -TRAZ150T78 PO; -ZOLP10TA PO
[2018-11-29 09:28] LABS: EOSINOPHILS # (AUTO) 0.1 X10'3 (0-0.9); EOSINOPHILS % (AUTO) 1.2 % (0-6); HEMOGLOBIN 14.7 g/dl (14.0-17.9); LYMPHOCYTES # (AUTO) 2.2 X10'3 (1.1-4.8); LYMPHOCYTES % (AUTO) 44.1 % (21-51); MEAN CORPUSCULAR HEMOGLOBIN 29.9 PG (27.0-31.0); MEAN CORPUSCULAR HGB CONC 33.3 g/dL (33.0-36.5); MEAN CORPUSCULAR VOLUME 89.7 FL (78-98); MEAN PLATELET VOLUME 8.7 FL (7.4-10.4); MONOCYTES # (AUTO) 0.4 X10'3 (0-0.9); MONOCYTES % (AUTO) 8.7 % (2-12); NEUTROPHILS # (AUTO) 2.3 X10'3 (1.8-7.7); PLATELET COUNT 191 X10'3 (140-440); RED BLOOD COUNT 4.91 X10'6 (4.70-6.10)
[2018-11-29 09:38] LABS: PARTIAL THROMBOPLASTIN TIME 27 SECONDS (22-32)
[2018-11-29 09:41] LABS: ALANINE AMINOTRANSFERASE 16 U/L (12-78); ALBUMIN 3.7 G/DL (3.4-5.0); ALKALINE PHOSPHATASE 76 IU/L (46-116); ANION GAP 11 (8-16); ASPARTATE AMINO TRANSFERASE 27 U/L (10-37); BILIRUBIN,TOTAL 0.4 MG/DL (0.1-1.0); BLOOD UREA NITROGEN 13 MG/DL (7-18); CALCIUM 8.9 MG/DL (8.5-10.1); CHLORIDE 105 MMOL/L (99-107); CREATININE 1.08 MG/DL (0.60-1.10); GLUCOSE 118 MG/DL (70-104); SODIUM 143 MMOL/L (135-145); TOTAL CARBON DIOXIDE 27.4 MMOL/L (24-32); TOTAL PROTEIN 7.3 G/DL (6.4-8.2); eGFR 68 ML/MIN
== END 2018-11-29 23:59 | disposition home or self-care (01) ==
LOC: LAB 08:16
PROVIDERS: ATTEND Otolaryngology
DX: D69.1 Qualitative platelet defects (principal)
CPT/HCPCS: 36415; 80053; 85025; 85576; 85610; 85730

== ENCOUNTER 2019-03-24 06:14 | Emergency (ER) | payer MEDICARE ==
[~2019-03-24] VITALS: Ht 182.9 cm; Wt 112.0 kg
[2019-03-24 07:33] LABS: BASOPHILS # (AUTO) 0.1 X10'3 (0-0.2); EOSINOPHILS % (AUTO) 0.2 % (0-6); HEMATOCRIT 43.2 % (42.0-52.0); HEMOGLOBIN 14.7 g/dl (14.0-17.9); LYMPHOCYTES % (AUTO) 24.8 % (21-51); MEAN CORPUSCULAR HEMOGLOBIN 30.4 PG (27.0-31.0); MEAN CORPUSCULAR HGB CONC 34.1 g/dL (33.0-36.5); MEAN CORPUSCULAR VOLUME 89.1 FL (78-98); MEAN PLATELET VOLUME 8.5 FL (7.4-10.4); MONOCYTES # (AUTO) 0.4 X10'3 (0-0.9); MONOCYTES % (AUTO) 5.5 % (2-12); NEUTROPHILS # (AUTO) 5.6 X10'3 (1.8-7.7); NEUTROPHILS % (AUTO) 68.5 % (42-75); PLATELET COUNT 164 X10'3 (140-440); RED BLOOD COUNT 4.85 X10'6 (4.70-6.10); RED CELL DISTRIBUTION WIDTH 14.1 % (11.5-14.5); WHITE BLOOD COUNT 8.1 X10'3 (4.5-11.0)
[2019-03-24 07:41] LABS: ALBUMIN 3.9 G/DL (3.4-5.0); ANION GAP 10 (8-16); BLOOD UREA NITROGEN 17 MG/DL (7-18); CALCIUM 8.7 MG/DL (8.5-10.1); CHLORIDE 108 MMOL/L (99-107); CREATININE 1.21 MG/DL (0.60-1.10); GLUCOSE 100 MG/DL (70-104); POTASSIUM 4.3 MMOL/L (3.5-5.1); SODIUM 147 MMOL/L (135-145); TOTAL CARBON DIOXIDE 29.2 MMOL/L (24-32); eGFR 60 ML/MIN
[2019-03-24 07:48] VITALS: BP 158/94
== END 2019-03-24 08:15 | disposition home or self-care (01) ==
LOC: ER 06:15
DX: S50.01XA Contusion of right elbow, initial encounter (principal); S80.211A Abrasion, right knee, initial encounter; E78.00 Pure hypercholesterolemia, unspecified; I10 Essential (primary) hypertension; K21.9 Gastro-esophageal reflux disease without esophagitis; Z98.890 Other specified postprocedural states; Z79.899 Other long term (current) drug therapy; W06.XXXA Fall from bed, initial encounter; Y93.89 Activity, other specified; Y92.89 Other specified places as the place of occurrence of the external cause; Y99.9 Unspecified external cause status
CPT/HCPCS: 36415; 73080; 80048; 85025; 93005; 99284

== ENCOUNTER 2022-12-05 17:14 | Emergency (ER) | payer MEDICARE, OTHER ==
[~2022-12-05] VITALS: Ht 185.4 cm; Wt 100.0 kg
[~2022-12-05 17:14] MED LIST changes: +MIRT-142 PO; -MIRT15TA PO
[2022-12-05 18:57] LABS: BASOPHILS # (AUTO) 0.1 X10'3 (0-0.2); BASOPHILS % (AUTO) 0.6 % (0-1); EOSINOPHILS # (AUTO) 0.1 X10'3 (0-0.9); EOSINOPHILS % (AUTO) 0.6 % (0-6); HEMATOCRIT 34.1 % (42.0-52.0); HEMOGLOBIN 11.2 g/dl (14.0-17.9); LYMPHOCYTES # (AUTO) 2.3 X10'3 (1.1-4.8); LYMPHOCYTES % (AUTO) 22.3 % (21-51); MEAN CORPUSCULAR HEMOGLOBIN 27.9 PG (27.0-31.0); MEAN CORPUSCULAR HGB CONC 32.9 g/dL (33.0-36.5); MEAN CORPUSCULAR VOLUME 84.7 FL (78-98); MEAN PLATELET VOLUME 8.3 FL (7.4-10.4); MONOCYTES # (AUTO) 0.9 X10'3 (0-0.9); MONOCYTES % (AUTO) 8.9 % (2-12); NEUTROPHILS # (AUTO) 6.8 X10'3 (1.8-7.7); NEUTROPHILS % (AUTO) 67.6 % (42-75); PLATELET COUNT 239 X10'3 (140-440); RED BLOOD COUNT 4.02 X10'6 (4.70-6.10); RED CELL DISTRIBUTION WIDTH 18.1 % (11.5-14.5); WHITE BLOOD COUNT 10.1 X10'3 (4.5-11.0)
[2022-12-05 19:05] LABS: ALANINE AMINOTRANSFERASE 15 U/L (12-78); ALBUMIN 3.8 G/DL (3.4-5.0); ALKALINE PHOSPHATASE 84 IU/L (46-116); AMYLASE 69 U/L (25-115); ANION GAP 11 (8-16); ASPARTATE AMINO TRANSFERASE 15 U/L (10-37); BILIRUBIN,TOTAL 0.5 MG/DL (0.1-1.0); BLOOD UREA NITROGEN 25 MG/DL (7-18); CHLORIDE 99 MMOL/L (99-107); CREATININE 1.93 MG/DL (0.60-1.10); GLUCOSE 118 MG/DL (70-104); LIPASE 125 U/L (73-393); POTASSIUM 4.1 MMOL/L (3.5-5.1); SODIUM 138 MMOL/L (135-145); TOTAL CARBON DIOXIDE 28.1 MMOL/L (24-32); TOTAL PROTEIN 7.8 G/DL (6.4-8.2); eCRCL 40 ML/MIN; eGFR 35 ML/MIN
[2022-12-05 19:11] LABS: CALCIUM 9.5 MG/DL (8.5-10.1)
[2022-12-05 22:53] VITALS: BP 122/81; PULSE 85; TEMP 97.6; O2SAT 94
[2022-12-05] MEDS ORDERED: ciprofloxacin 250mg tablet PO ONE (23:55)
[2022-12-05] MEDS ORDERED: metroNIDAZOLE 500mg tablet PO ONE (23:55)
[2022-12-05] MEDS ORDERED: METR-159 PO (23:58)
[2022-12-05] MEDS ORDERED: POLY17PO10 PO (23:58)
[2022-12-05] MEDS ORDERED: CIPR-202 PO (23:58)
[2022-12-06 01:44] VITALS: RESP 18
[2022-12-06] MEDS ORDERED: METR-159 PO (02:28)
[2022-12-06] MEDS ORDERED: CIPR-202 PO (02:28)
[2022-12-06] MEDS ORDERED: POLY17PO10 PO (02:28)
== END 2022-12-06 02:31 | disposition home or self-care (01) ==
LOC: ER 17:14
DX: K57.92 Diverticulitis of intestine, part unspecified, without perforation or abscess without bleeding (principal); E78.00 Pure hypercholesterolemia, unspecified; I10 Essential (primary) hypertension; K21.9 Gastro-esophageal reflux disease without esophagitis; Z79.899 Other long term (current) drug therapy
CPT/HCPCS: 36415; 74176; 80053; 82150; 83690; 85025; 99284